=== PATIENT | female | born 1995 | race Two or more races ===

== ENCOUNTER 2019-12-31 19:42 | Emergency (ER) | payer OTHER ==
[~2019-12-31] VITALS: Ht 160 cm; Wt 56.7 kg
[2019-12-31 19:55] VITALS: BP 102/65
--- NOTE | 2019-12-31 19:55 | NUR ---
ED Nurse Note: Pt walked into ED from home for c/o SOB x 1.5 weeks, worse today. Pt states she though the SOB would get better, but it hasn't. She also notes mild chest pain. She denies any fever, chills or recent travel. Pt admits to smoking vape, which has caused her shortness of breath in the past. Pt is breathing normal, unlabored. No acute distress noted.
--- NOTE | 2019-12-31 20:13 | Emergency Room Report ---
History of Present Illness General Chief Complaint: Dyspnea/Respdistress Source: Patient Present Illness HPI 24-year-old female with no segment past medical history here complaining of several days of shortness of breath without any chest pain or palpitation. Reports that it happened at rest and when sitting down. Reports that after taking deep breaths patient feels better. Denies any history of heart related issues. Patient reports that she vapes on daily basis and has been there for years. Also reports that she smokes marijuana. Denies any other drug use. Denies recent travel, cough and congestion, fever and chills, or coming contact with travel. Denies any history of asthma. Sitting comfortably with stable vital signs. Denies any history of gastritis, reports that she only drinks 1 cup of coffee every morning and does not eat anything spicy or acidic. Has a psychiatrist and takes Wellbutrin on daily basis and was prescribed Ativan as needed however has not taken in a long time but has a prescription for it. Denies at this time. COVID-19 risk:Travel to affect: No Has patient experienced agudelo: No Allergies: Coded Allergies: GABAPENTIN (Verified Allergy, Unknown, 12/31/19) itchy Patient History Past Medical History: see triage record Past Surgical History: none Pertinent Family History: none Social History: Reports: smoking - vaping, drug use - marijuana use Last Menstrual Period: 11-25-2019 Now: No Immunizations: UTD Reviewed Nursing Documentation: PMH: Agreed; PSxH: Agreed Nursing Documentation-PMH History Of Psychiatric Problem: Yes - anxiety, depression Review of Systems All Other Systems: negative except mentioned in HPI Physical Exam Vital Signs Date Time Temp Pulse Resp B/P (MAP) Pulse Ox O2 Delivery O2 Flow Rate FiO2 12/31/19 19:45 98.1 75 16 102/65 (77) 100 Room Air Sp02 EP Interpretation: reviewed, normal General Appearance: no apparent distress, alert, GCS 15, non-toxic Head: normocephalic, atraumatic Eyes: bilateral eye normal inspection, bilateral eye PERRL ENT: hearing grossly normal, normal pharynx, no angioedema, normal voice Neck: full range of motion, supple/symm/no masses Respiratory: chest non-tender, lungs clear, normal breath sounds, no rhonchi, no respiratory distress, no retraction, no accessory muscle use, no wheezing, speaking full sentences Cardiovascular #1: regular rate, rhythm, no edema, no murmur, normal capillary refill Gastrointestinal: normal bowel sounds, non tender, soft, non-distended, no guarding, no rebound Rectal: deferred Genitourinary: no CVA tenderness Musculoskeletal: back normal, no calf tenderness Neurologic: alert, motor strength/tone normal, oriented x3, sensory intact, responsive, speech normal Psychiatric: judgement/insight normal, memory normal, mood/affect normal, no suicidal/homicidal ideation Skin: no rash Lymphatic: no adenopathy Medical Decision Making PA Attestation All my diagnosis and treatment plans were reviewed ad discussed with my supervising physician Dr. Motley Diagnostic Impression: Primary Impression: SOB (shortness of breath) Additional Impression: Anxiety ER Course 24-year-old female with no segment past medical history here complaining of several days of shortness of breath without any chest pain or palpitation. Reports that it happened at rest and when sitting down. Reports that after taking deep breaths patient feels better. Denies any history of heart related issues. Patient reports that she vapes on daily basis and has been there for years. Also reports that she smokes marijuana. Denies any other drug use. Denies recent travel, cough and congestion, fever and chills, or coming contact with travel. Denies any history of asthma. Sitting comfortably with stable vital signs. Denies any history of gastritis, reports that she only drinks 1 cup of coffee every morning and does not eat anything spicy or acidic. Has a psychiatrist and takes Wellbutrin on daily basis and was prescribed Ativan as needed however has not taken in a long time but has a prescription for it. Denies at this time. Ddx considered but are not limited to: generalized anxiety disorder, panic attack, depression with psychotic feature, bipolar disorder, drug overdose, emphysema, respiratory distress, Vital signs: are WNL, pt. is afebrile H&PE are most consistent with: SOB mostly secondary to vaping and anxiety ORDERS: Chest x-ray, EKG, albuterol inhaler ED INTERVENTIONS: None required at this time. DISCHARGE: At this time pt. is stable for d/c to home. Will provide printed patient care instructions, and any necessary prescriptions. Care plan and follow up instructions have been discussed with the patient prior to discharge. At this time no further imaging or blood work is needed patient is 24 years old with no comorbidities. Patient sitting comfortably see vital signs. Will follow primary care provider for further evaluation and possible referral to neurourologist and urology teacher. Also assess anxiety with psychiatrist. If needed take Ativan as it was prescribed to her by psychiatrist. If worsening symptoms return to the emergency room EKG Diagnostic Results Rate: normal Rhythm: NSR ST Segments: no acute changes Other Impression No acute ST changes Chest X-Ray Diagnostic Results Chest X-Ray Diagnostic Results : Chest X-Ray Ordered: Yes # of Views/Limited/Complete: 1 View Indication: Shortness of Breath EP Interpretation: Yes SANDRA Xray: Interpretation reviewed, by supervising MD, and agrees with findings. Interpretation: no consolidation, no effusion, no pneumothorax, no acute cardiopulmonary disease Impression: No acute disease Electronically Signed by: Jose Alfredo Morataya PA-C Last Vital Signs Date Time Temp Pulse Resp B/P (MAP) Pulse Ox O2 Delivery O2 Flow Rate FiO2 12/31/19 19:55 75 16 Room Air 12/31/19 19:55 98.1 102/65 100 Disposition: HOME, SELF-CARE Condition: Stable Scripts Albuterol Sulfate (VENTOLIN HFA) 18 Gm Hfa.aer.ad 2 PUFFS INH EVERY 6 HOURS, #18 GM 0 Refills Prov: Jose Alfredo Isaacs 12/31/19 Patient Instructions: Generalized Anxiety Disorder, Shortness of Breath, Easy- to-Read Additional Instructions: Take medication as directed, increase oral hydration, avoid vaping, continue taking your anxiety medication, follow-up with your psychiatrist, if worsening symptoms return to the emergency room. Use inhaler only when short of breath and difficulty breathing. Jose Alfredo Isaacs Dec 31, 2019 20:13
[2019-12-31] MEDS ORDERED: VENTOLIN HFA18 GM INH (20:14)
[2019-12-31 20:20] VITALS: BP 102/65
--- NOTE | 2019-12-31 20:20 | NUR ---
ER DISCHARGE NOTE: Patient is cleared to be discharged per ERMD, pt is aox4, on room air, with stable vital signs. pt was given dc and prescription instructions, pt was able to verbalize understanding, pt id band removed. pt is able to ambulate with steady gait. pt took all belongings.
--- NOTE | 2020-01-04 10:40 | Diagnostic Imaging Report ---
Indication: Shortness of breath Technique: One view of the chest Comparison: none Findings: Lungs and pleural spaces are clear. Heart size is normal. Impression: No acute process
== END 2019-12-31 20:20 | disposition home or self-care (01) ==
LOC: EMR 20:02
DX: R06.02 Shortness of breath (principal); F41.9 Anxiety disorder, unspecified; F32.9 Major depressive disorder, single episode, unspecified; F12.90 Cannabis use, unspecified, uncomplicated; Z88.8 Allergy status to other drugs, medicaments and biological substances
CPT/HCPCS: 71045; 93005; 99283